=== PATIENT | male | born 1980 | race Caucasian/White ===

== ENCOUNTER 2021-09-10 21:19 | Emergency (ER) | payer SELFPAY ==
[~2021-09-10] VITALS: Ht 175.3 cm; Wt 104.0 kg
--- NOTE | 2021-09-10 22:04 | PHYS DOC ---
General Adult EDM: Chief Complaint: COUGH HPI: HPI: 41-year-old male presents with cough. The patient has had a cough for few days and feels like he is having increasing shortness of breath. He took a rapid COVID test which was negative. He is concerned about bronchitis or pneumonia. When he coughs a lot he has some chest tightness but is pain-free when he is not coughing. No personal history of cardiac disease. He has had COVID-19 in the past. Denies fever or chills. Review of Systems: Review of Systems: Constitutional: Denies fever or chills Eyes: Denies change in visual acuity HENT: Denies nasal congestion or sore throat Respiratory: Cough with shortness of breath Cardiovascular: Denies chest pain or edema GI: Denies abdominal pain, nausea, vomiting, bloody stools or diarrhea : Denies dysuria Musculoskeletal: Denies back pain or joint pain Integument: Denies rash Neurologic: Denies headache, focal weakness or sensory changes Endocrine: Denies polyuria or polydipsia Lymphatic: Denies swollen glands Psychiatric: Denies depression or anxiety Physical Exam: PE: Constitutional: Well developed, well nourished, obese, no acute distress, non- toxic appearance. [] HENT: Normocephalic, atraumatic, bilateral external ears normal, oropharynx moist, no oral exudates, nose normal. [] Eyes: PERRLA, EOMI, conjunctiva normal, no discharge. [] Neck: Normal range of motion, no tenderness, supple, no stridor. [] Cardiovascular: Heart rate 71, regular rhythm, no murmur [] Lungs & Thorax: Bilateral breath sounds clear to auscultation [] Abdomen: Bowel sounds normal, soft, no tenderness, no masses, no pulsatile masses. [] Skin: Warm, dry, no erythema, no rash. [] Back: No tenderness, no CVA tenderness. [] Extremities: No tenderness, no cyanosis, no clubbing, ROM intact, no edema. [] Neurologic: Alert and oriented X 3, normal motor function, normal sensory function, no focal deficits noted. [] Psychologic: Affect normal, judgement normal, mood normal. [] EKG: EKG: Sinus rhythm, rate 71, normal axis, no ST elevation or depression. [] Radiology/Procedures: Radiology/Procedures: [] Impressions: EXAM: AP View of the chest DATE: 09/10/2021 10:37 PM INDICATION: Reason: SOB, cough / Spl. Instructions: / History: COMPARISON: No Prior FINDINGS: The heart is not enlarged. Mediastinal and hilar contours are normal. Airspace opacities in the left midlung and left lower lung likely consolidative process such as pneumonia No pleural effusion or pneumothorax. IMPRESSION: Airspace opacities and left midlung and left lower lung likely consolidative process such as pneumonia Electronically signed by: Meng Joseph MD (09/10/2021 10:55 PM) [facility] DICTATED AND SIGNED BY: MENG JOSEPH MD DATE: 09/10/21 5049 CC: KASIA MCCORMICK DO; PCP,NO ~ Heart Score: C/O Chest Pain: Yes HEART Score for Chest Pain: HEART Score for Chest Pain Response (Comments) Value History Slighlty/Non-Suspicious 0 ECG Normal 0 Age < 45 0 Risk Factors 1 or 2 Risk Factors 1 Troponin < Normal Limit 0 Total 1 Risk Factors: Risk Factors: DM, Current or recent (<one month) smoker, HTN, HLP, family history of CAD, obesity. Risk Scores: Score 0 - 3: 2.5% MACE over next 6 weeks - Discharge Home Score 4 - 6: 20.3% MACE over next 6 weeks - Admit for Clinical Observation Score 7 - 10: 72.7% MACE over next 6 weeks - Early Invasive Strategies Course & Med Decision Making: Course & Med Decision Making Pertinent Labs and Imaging studies reviewed. (See chart for details) The patient's x-ray significant for pneumonia. We will treat him with Rocephin and azithromycin. I will discharge him with a prescription for azithromycin. He is stable for discharge at this time. [] Dragon Disclaimer: Dragon Disclaimer: This electronic medical record was generated, in whole or in part, using a voice recognition dictation system. Departure Departure: Impression: Primary Impression: Pneumonia involving left lung Disposition: HOME / SELF CARE / HOMELESS Condition: STABLE Referrals: PCP,NO (PCP) Patient Instructions: Pneumonia, Adult, [id number] Scripts Azithromycin (AZITHROMYCIN TABLET) 250 Mg Tablet 250 MG PO DAILY for ANTI-BIOTIC for 4 Days, #4 TAB 0 Refills Prov: KASIA MCCORMICK DO 09/10/21 KASIA MCCORMICK DO September 10, 2021 22:04
[2021-09-10 22:27] LABS: BASO % 1 % (0-3); EOS # 0.1 x10^3/uL (0.0-0.7); EOS % 2 % (0-3); HEMATOCRIT 41.1 % (39.0-53.0); HEMOGLOBIN 14.1 g/dL (13.0-17.5); LYMPH # 1.1 x10^3/uL (1.0-4.8); LYMPH % 18 % (24-48); MEAN CORPUSCULAR HEMOGLOBIN 28 pg (25-35); MEAN CORPUSCULAR HGB CONC 34 g/dL (31-37); MEAN CORPUSCULAR VOLUME 82 fL (79-100); MONO # 0.7 x10^3/uL (0.0-1.1); MONO % 11 % (0-9); NEUT # 4.2 x10^3uL (1.8-7.7); NEUT % 69 % (31-73); PLATELET COUNT 222 x10^3/uL (140-400); RED BLOOD COUNT 5.01 x10^6/uL (4.30-5.70); WHITE BLOOD COUNT 6.2 x10^3/uL (4.0-11.0)
[2021-09-10 22:35] LABS: CALCIUM 8.6 mg/dL (8.5-10.1); CREATININE 1.2 mg/dL (0.7-1.3); GFR 66.7; POTASSIUM 3.2 mmol/L (3.5-5.1)
[2021-09-10 22:39] LABS: INFLUENZA A PATIENT NEGATIVE (NEGATIVE); INFLUENZA B PATIENT NEGATIVE (NEGATIVE)
[2021-09-10 22:42] LABS: ALBUMIN 3.4 g/dL (3.4-5.0); ALBUMIN/GLOBULIN RATIO 1.1 (1.0-1.7); TOTAL BILIRUBIN 0.3 mg/dL (0.2-1.0); TOTAL PROTEIN 6.4 g/dL (6.4-8.2)
--- NOTE | 2021-09-10 22:57 | RAD ---
EXAM: AP View of the chest DATE: 09/10/2021 10:37 PM INDICATION: Reason: SOB, cough / Spl. Instructions: / History: COMPARISON: No Prior FINDINGS: The heart is not enlarged. Mediastinal and hilar contours are normal. Airspace opacities in the left midlung and left lower lung likely consolidative process such as pneum onia No pleural effusion or pneumothorax. IMPRESSION: Airspace opacities and left midlung and left lower lung likely consolidative process such as pneumoni a Electronically signed by: Meng Joseph MD (09/10/2021 10:55 PM) [facility]
[2021-09-10] MEDS ORDERED: AZIT250T6 PO (23:13)
[2021-09-10] MEDS ORDERED: AZITHROMYCIN 250 MG TABLET. PO ONE (23:15)
[2021-09-11] MEDS ORDERED: cefTRIAXone SODIUM 1 GM VIAL ONE (00:06)
[2021-09-11] MEDS ORDERED: IV NORMAL SALINE 50ML 50 ML ONE (00:06)
[2021-09-11 00:14] VITALS: BP 132/54
== END 2021-09-11 00:14 | disposition home or self-care (01) ==
LOC: ER 21:19
DX: J18.1 Lobar pneumonia, unspecified organism (principal); Z20.822 Contact with and (suspected) exposure to COVID-19
CPT/HCPCS: 36415; 71045; 80053; 84484; 85025; 87428; 93005; 96365; 99285; J0696